=== PATIENT | male | born 1955 | race Hispanic/Latino ===

== ENCOUNTER 2016-06-26 07:05 | Outpatient (CLI) | payer OTHER ==
--- NOTE | 2016-06-26 08:00 | RAD ---
CHEST 2 VIEWS: Date: 06/26/16 HISTORY: Cough. COMPARISON: 05/15/08. FINDINGS: The cardiac silhouette and pulmonary vasculature are unremarkable. Mediastinum is midline. There is no confluent air space consolidation, pneumothorax, or pleural fluid evident. IMPRESSION: No active cardiopulmonary abnormalities are demonstrated. POS: [facility]
[2016-06-26 08:20] LABS: #Basophils 0.2 thou/uL (0.0-0.2); #Eosinphils 0.5 thou/uL (0.0-0.7); #Lymphocytes 1.7 thou/uL (1.20-3.40); #Monocytes 0.7 thou/uL (0.11-0.59); #Neutrophils 3.6 thou/uL (1.40-6.50); %Basophils 2.6 % (0.0-1.0); %Eosinophils 8.1 % (0.0-10.0); %Lymphocytes 25.6 % (21.0-51.0); %Monocytes 9.9 % (0.0-10.0); %Neutrophils 53.8 % (42.0-75.0); Mean Corpuscular HGB CONC 34.6 g/dL (32.0-36.0); Mean Corpuscular Hemoglobin 30.1 pg (27.0-31.0); Mean Platelet Volume 6.6 fL (7.4-10.4); Platelet Count 349 thou/uL (130-400); RBC Distribution Width 11.9 % (11.5-14.5); Red Blood Cell (RBC) Count 5.64 mill/uL (4.70-6.10); White Blood Cell (WBC) Count 6.6 thou/uL (4.8-10.8)
[2016-06-26 08:23] LABS: Bilirubin Negative (Negative); Blood, Urine Negative (Negative); Clarity Clear (Clear); Glucose, Urine (Dipstick) Negative (Negative); Leukocyte Negative (Negative); Nitrite Negative (Negative); Protein, Urine (Dipstick) Negative (Neg-Trace); Urobilinogen 0.2 mg/dL (0.2-1.0); pH, Urine 5.5 (5.0-9.0)
[2016-06-26 08:34] LABS: Hemoglobin A1c 5.6 % (4.0-6.0)
[2016-06-26 08:36] LABS: ALT (SGPT) 30 U/L (0-55); AST (SGOT) 22 U/L (5-34); Albumin 4.1 g/dL (3.5-5.0); Alkaline Phosphatase 100 U/L (40-150); Anion Gap 14 mmol/L (10-20); BUN (Urea Nitrogen) 16 mg/dL (8.4-25.7); Bilirubin, Total 0.6 mg/dL (0.2-1.2); Calc. Creatinine Clearance 0 mL/min (70-130); Calcium 8.9 mg/dL (7.8-10.44); Carbon Dioxide 24 mmol/L (22-29); Cardiac Risk 4.6 (Less than 4.5); Chloride 105 mmol/L (98-107); Cholesterol 183 mg/dL (< 200 Desired); Estimated GFR-MDRD 79; Globulin 3.3 g/dL (2.4-3.5); Glucose 120 mg/dL (70-105); HDL Cholesterol 40 mg/dL (>60 Neg Risk); LDL Cholesterol, Calculated 111 mg/dL; Potassium 4.1 mmol/L (3.5-5.1); Protein, Total 7.4 g/dL (6.0-8.3); Sodium 139 mmol/L (136-145); Triglycerides 158 mg/dL (Less than 150)
[2016-06-26 08:57] LABS: PSA-Asymptomatic (SCREENING) 4.02 ng/mL (0-4.0); Thyroid Stimulating Hormone 1.6998 uIU/mL (0.35-4.94)
== END 2016-06-26 07:06 | disposition home or self-care (01) ==
LOC: NAV LAB 07:05
PROVIDERS: ATTEND Psychiatry & Neurology Psychiatry
DX: Z12.5 Encounter for screening for malignant neoplasm of prostate (principal); E78.5 Hyperlipidemia, unspecified; E88.81 Metabolic syndrome and other insulin resistance; I10 Essential (primary) hypertension; R05 Cough; Z79.899 Other long term (current) drug therapy
CPT/HCPCS: 71020; 80053; 80061; 81003; 83036; 84443; 85025; G0103